=== PATIENT | male | born 1980 | race American Indian/Alaskan Native ===

== ENCOUNTER 2021-02-14 00:15 | Emergency (ER) | payer SELFPAY ==
[2021-02-14 00:48] VITALS: BP 153/91
--- NOTE | 2021-02-14 01:57 | XRay Report ---
RIGHT ANKLE RADIOGRAPH, 3 VIEWS INDICATION / CLINICAL INFORMATION: INJURY COMPARISON: None available. FINDINGS: BONES / JOINT(S): No acute displaced fracture or subluxation. No significant arthritis. SOFT TISSUES: Mild to moderate soft tissue swelling about the ankle. ADDITIONAL FINDINGS: None. Signer Name: Michelle Cook MD Signed: 02/14/2021 1:52 AM Workstation Name: [id number]
[2021-02-14] MEDS ORDERED: IBUPROFEN 600 MG TAB PO ONE (03:35)
--- NOTE | 2021-02-14 03:35 | Emergency Department Report ---
ED Lower Extremity HPI - General Chief Complaint: Extremity Injury, Lower Stated Complaint: SPRAINED RIGHT ANKLE Time Seen by Provider: 02/14/21 03:30 Source: patient Mode of arrival: Ambulatory Limitations: No Limitations - History of Present Illness Initial Comments: 40-year-old -[place] male presents to the emergency room planing of right ankle injury. Patient states that he was bringing in groceries from the car when he stepped down and twisted his ankle. Patient presents to the emergency room for pain and swelling. Patient is taking nothing for his discomfort. Patient denies any past medical history. Does not have any allergies to medications. Does not have a primary care provider. MD Complaint: ankle injury -: This afternoon Time: 14:00 Injury: Ankle: Right Type of Injury: inversion Place: home Severity scale (0 -10): 8 Improves With: immobilization Worsens With: weight bearing, movement, palpation Context: walking Associated Symptoms: swelling, able to partially bear weight - Related Data Previous Rx's Medication Instructions Recorded Last Taken Type Ibuprofen [Motrin 600 MG tab] 600 mg PO Q8H PRN #30 tablet 02/14/21 Unknown Rx Allergies Allergy/AdvReac Type Severity Reaction Status Date / Time No Known Allergies Allergy Unverified 02/14/21 00:42 ED Review of Systems ROS: Stated complaint: SPRAINED RIGHT ANKLE Other details as noted in HPI Comment: All other systems reviewed and negative ED Past Medical Hx - Social History Smoking Status: Current Every Day Smoker Substance Use Type: None - Medications Home Medications: Home Medications Medication Instructions Recorded Confirmed Last Taken Type Ibuprofen [Motrin 600 MG tab] 600 mg PO Q8H PRN #30 tablet 02/14/21 Unknown Rx ED Physical Exam - General Limitations: No Limitations General appearance: alert, in no apparent distress - Head Head exam: Present: atraumatic, normocephalic - Eye Eye exam: Present: normal appearance - ENT ENT exam: Present: mucous membranes moist - Neck Neck exam: Present: normal inspection, full ROM - Respiratory Respiratory exam: Absent: respiratory distress, accessory muscle use - Cardiovascular Cardiovascular Exam: Present: regular rate - Expanded Lower Extremity Exam Right Hip exam: Present: normal inspection Upper Leg exam: Present: normal inspection Knee exam: Present: normal inspection Lower Leg exam: Present: normal inspection Ankle exam: Present: full ROM, tenderness, swelling Foot/Toe exam: Present: normal inspection, full ROM, tenderness, swelling Neuro vascular tendon exam: Present: no vascular compromise Gait: Positive: observed and limited by pain - Back Exam Back exam: Present: normal inspection - Neurological Exam Neurological exam: Present: alert, oriented X3 - Psychiatric Psychiatric exam: Present: normal affect, normal mood - Skin Skin exam: Present: warm, dry, intact, normal color. Absent: rash ED Course Vital Signs 02/14/21 00:44 Temperature 98.9 F Pulse Rate 82 Respiratory 18 Rate Blood Pressure 153/91 O2 Sat by Pulse 98 Oximetry ED Lower Extremity MDM - Radiology Data Radiology results: report reviewed [facility] [address] [place] [address] XRay Report Signed Patient: ROXANA ABBASI MR#: [id number] : 1980 Acct:[id number] Age/Sex: 40 / M ADM Date: 02/14/21 Loc: ED Attending Dr: Ordering Physician: MANNY HOUGH MD Date of Service: 02/14/21 Procedure(s): XR ankle 3+V RT Accession Number(s): [id number] cc: ED MD [place] Fluoro Time In Minutes: RIGHT ANKLE RADIOGRAPH, 3 VIEWS INDICATION / CLINICAL INFORMATION: INJURY COMPARISON: None available. FINDINGS: BONES / JOINT(S): No acute displaced fracture or subluxation. No significant arthritis. SOFT TISSUES: Mild to moderate soft tissue swelling about the ankle. ADDITIONAL FINDINGS: None. Signer Name: Michelle Cook MD Signed: 02/14/2021 1:52 AM Workstation Name: [id number] Transcribed By: [facility] Dictated By: Michelle Cook MD Electronically Authenticated By: Michelle Cook MD Signed Date/Time: 02/14/21151 DD/ 0 TD/TT: - Medical Decision Making 40-year-old -[place] male presents to the emergency room planing of r ight ankle injury. Patient states that he was bringing in groceries from the car when he stepped down and twisted his ankle. Patient presents to the emergency room for pain and swelling. Patient is taking nothing for his discomfort. Patient denies any past medical history. Does not have any allergies to medications. Does not have a primary care provider. X-ray shows no fractures or dislocation. Does show moderate swelling. Patient be treated for a right ankle sprain with ankle stirrup crutches pain medication. Referral to orthopedist if no improvement. Critical care attestation.: If time is entered above; I have spent that time in minutes in the direct care of this critically ill patient, excluding procedure time. ED Disposition Clinical Impression: Moderate right ankle sprain Qualifiers: Encounter type: initial encounter Qualified Code(s): S93.401A - Sprain of unspecified ligament of right ankle, initial encounter Ankle injury Qualifiers: Encounter type: initial encounter Laterality: right Qualified Code(s): S99.911A - Unspecified injury of right ankle, initial encounter Disposition: TO HOME OR SELFCARE Is pt being admited?: No Does the pt Need Aspirin: No Condition: Stable Instructions: How to Use a Stirrup Ankle Brace, [id number], Ankle Sprain, Phase II Rehab-SportsMed Additional Instructions: X-ray shows no fractures or dislocation. Does show moderate swelling. Patient be treated for a right ankle sprain with ankle stirrup crutches pain medication. Referral to orthopedist if no improvement. Prescriptions: Ibuprofen [Motrin 600 MG tab] 600 mg PO Q8H PRN #30 tablet PRN Reason: Pain , Severe (7-10) Referrals: PRIMARY CARE, [Primary Care Provider] - 3-5 Days JENNI BATISTA MD [Staff Physician] - 3-5 Days Forms: Work/School Release Form(ED)
== END 2021-02-14 03:46 | disposition home or self-care (01) ==
LOC: ED 00:15
DX: S99.911A Unspecified injury of right ankle, initial encounter (principal); F17.200 Nicotine dependence, unspecified, uncomplicated; Z79.899 Other long term (current) drug therapy; X50.1XXA Overexertion from prolonged static or awkward postures, initial encounter; Y93.89 Activity, other specified; Y92.89 Other specified places as the place of occurrence of the external cause; Y99.8 Other external cause status
CPT/HCPCS: 99283